=== PATIENT | female | born 1990 | race Caucasian/White ===

== ENCOUNTER 2016-12-18 19:23 | Emergency (ER) | payer MEDICARE, MEDICAID ==
--- NOTE | 2016-12-18 20:43 | ER Document Report ---
ED Medical Screen (RME) - General Stated Complaint: POSSIBLE VAGINAL DISCHARGE Time seen by provider: 20:38 Mode of Arrival: Ambulatory Information source: Patient Notes: 26-year-old female presents to ED for vaginal pelvic pain 36 hours. She states she examined herself cervix and there was some bumps on her cervix. She states she does not see anything on the outside. Last menstrual period was November. She states that when she did her exam on herself she felt like something popped in that she had some blood and discharge from her vaginal area. Then any time she has a bowel movement she has a vaginal discharge and with blood.. I have greeted and performed a rapid initial assessment of this patient. A comprehensive ED assessment and evaluation of the patient, analysis of test results and completion of medical decision making process will be conducted by an additional ED providers. TRAVEL OUTSIDE OF THE [place] IN LAST 30 DAYS: No - Related Data Allergies/Adverse Reactions: No Known Allergies Allergy (Verified 10/20/16 09:17) Past Medical History - Past Medical History Cardiac Medical History: Denies: Hx Coronary Artery Disease, Hx Heart Attack, Hx Hypertension Pulmonary Medical History: Denies: Hx Asthma, Hx Bronchitis, Hx COPD, Hx Pneumonia Neurological Medical History: Denies: Hx Cerebrovascular Accident, Hx Seizures GI Medical History: Reports: Hx Ulcerative Colitis - Patient reports pancolitis Musculoskeltal Medical History: Denies Hx Arthritis - Immunizations Hx Diphtheria, Pertussis, Tetanus Vaccination: Yes
[2016-12-18 22:54] LABS: APPEARANCE,URINE SLIGHTLY-CLOUDY; BILIRUBIN,URINE NEGATIVE (NEGATIVE); GLUCOSE, URINE NEGATIVE (NEGATIVE); KETONES,URINE NEGATIVE (NEGATIVE); LEUKOCYTE ESTERASE,URINE NEGATIVE (NEGATIVE); NITRITE,URINE NEGATIVE (NEGATIVE); PROTEIN,URINE NEGATIVE (NEGATIVE); URINE SPECIFIC GRAVITY 1.017; UROBILINOGEN,URINE NEGATIVE mg/dL (<2.0)
[2016-12-18 23:14] LABS: ALANINE AMINOTRANSFERASE 30 U/L (9-52); ALBUMIN 4.9 g/dL (3.5-5.0); ALKALINE PHOSPHATASE 61 U/L (38-126); ANION GAP 16 (5-19); ASPARTATE AMINO TRANSFERASE 24 U/L (14-36); BILIRUBIN,DIRECT 0.1 mg/dL (0.0-0.4); BILIRUBIN,TOTAL 0.6 mg/dL (0.2-1.3); BLOOD UREA NITROGEN 15 mg/dL (7-20); CALCIUM 10.2 mg/dL (8.4-10.2); CARBON DIOXIDE 25 mmol/L (22-30); CHLORIDE 104 mmol/L (98-107); CREATININE RESULT 0.72 mg/dL (0.52-1.25); GLUCOSE 84 mg/dL (75-110); POTASSIUM 4.3 mmol/L (3.6-5.0); TOTAL PROTEIN 8.4 g/dL (6.3-8.2)
[2016-12-19 00:21] LABS: CHLAM PCR DETECTED (NOT DETECT)
== END 2016-12-19 00:26 | disposition left against medical advice (07) ==
LOC: ER 19:23
DX: Z53.9 Procedure and treatment not carried out, unspecified reason (principal); R10.2 Pelvic and perineal pain
CPT/HCPCS: 36415; 80053; 81001; 84703; 87491; 87591; 99281

== ENCOUNTER 2017-03-23 14:06 | Emergency (ER) | payer MEDICARE, MEDICAID ==
--- NOTE | 2017-03-23 15:07 | ER Document Report ---
ED Medical Screen (RME) - General TRAVEL OUTSIDE OF THE [place] IN LAST 30 DAYS: No - General Chief Complaint: Abdominal Pain Stated Complaint: ABDOMINAL PAIN Time Seen by Provider: 03/23/17 15:03 Notes: Patient is a 26 year old female presenting to the ED for increased abdominal pain and rectal pain. Patient has a history of ulcerative colitis and Crohn's disease. Patient states she is over due for her Remicade infusion. Patient was out of town recently. Patient sees Dr. Contreras GI at [facility] who orders her infusions. Patient denies any nausea/vomiting. (CHRISTOPHER ARCHULETA) - Related Data Allergies/Adverse Reactions: No Known Allergies Allergy (Verified 03/23/17 14:12) Past Medical History - Past Medical History Cardiac Medical History: Denies: Hx Coronary Artery Disease, Hx Heart Attack, Hx Hypertension Pulmonary Medical History: Denies: Hx Asthma, Hx Bronchitis, Hx COPD, Hx Pneumonia Neurological Medical History: Denies: Hx Cerebrovascular Accident, Hx Seizures Renal/ Medical History: Denies: Hx Peritoneal Dialysis GI Medical History: Reports: Hx Ulcerative Colitis - Patient reports pancolitis Musculoskeltal Medical History: Denies Hx Arthritis - Immunizations Hx Diphtheria, Pertussis, Tetanus Vaccination: Yes Physical Exam - Vital signs Vitals: Temp Pulse Resp BP Pulse Ox 98.0 F 96 16 124/85 99 03/23/17 14:13 03/23/17 14:13 03/23/17 14:13 03/23/17 14:13 03/23/17 14:13 - Notes Notes: GENERAL: appears uncomfortable, alert. LUNGS: clear to auscultation bilaterally, no resp. distress. HEART: regular rate and rhythm (CHRISTOPHER ARCHULETA) Course - Re-evaluation Re-evalutation: 03/23/17 15:12 Presents emergency department with history of ulcerative colitis stating she is having a flare. She is having abdominal pain 10+ bowel movements a day which are bloody. She has a history of ulcerative colitis and is on Remicade infusions but went on to state for 5 weeks for a wedding and missed her dosages. She was supposed to go have that done today and her car battery went start she presents to the emergency department. She sees a local GI specialist. She says she feels like she may need some steroids at this point. Nausea but no vomiting bloody diarrhea no lightheadedness dizziness or chest pain vital signs are stable mild tenderness left lower quadrant without guarding rebound rigidity and do a laboratory evaluation and send her to the back for evaluation and disposition per attending ED physician 03/23/17 15:13 I personally performed the services described in the documentation reviewed the documentation recorded by my scribe in my presence and it accurately and completely records my words and actions (MICHAEL MURRELL) - Vital Signs Vital signs: Temp Pulse Resp BP Pulse Ox 98.0 F 96 16 124/85 99 03/23/17 14:13 03/23/17 14:13 03/23/17 14:13 03/23/17 14:13 03/23/17 14:13 Scribe Documentation - Scribe Written by Scribe:: Yan Wilson 03/23/17 15:18 acting as scribe for :: NYASIA
[2017-03-23] MEDS ORDERED: RINGERS SOLUTION,LACTATED 1,000 ML IV PRN (15:12)
[2017-03-23 15:43] LABS: ABSOLUTE BASOPHILS # (AUTO) 0.1 10^3/uL (0.0-0.2); ABSOLUTE EOSINOPHILS # (AUTO) 0.4 10^3/uL (0.0-0.6); ABSOLUTE LYMPHOCYTES (AUTO) 2.4 10^3/uL (0.5-4.7); ABSOLUTE MONOCYTES (AUTO) 0.5 10^3/uL (0.1-1.4); ABSOLUTE NEUT (AUTO) 3.1 10^3/uL (1.7-8.2); BASOPHILS % (AUTO) 1.4 % (0-2); EOSINOPHILS % (AUTO) 5.9 % (0-6); HEMATOCRIT 44.1 % (36.0-47.0); HEMOGLOBIN 14.6 g/dL (12.0-15.5); HGB HCT DIFFERENCE -0.3; LYMPHOCYTES % (AUTO) 36.7 % (13-45); MEAN CORPUSCULAR HEMOGLOBIN 31.8 pg (27.0-33.4); MEAN CORPUSCULAR HGB CONC 33.2 g/dL (32.0-36.0); MEAN CORPUSCULAR VOLUME 96 fl (80-97); MONOCYTES % (AUTO) 7.5 % (3-13); RED BLOOD COUNT 4.61 10^6/uL (3.72-5.28); RED CELL DISTRIBUTION WIDTH 13.2 % (11.5-14.0); SEGMENTED NEUTROPHILS % (AUTO) 48.5 % (42-78); WHITE BLOOD COUNT 6.4 10^3/uL (4.0-10.5)
[2017-03-23 15:55] LABS: ALANINE AMINOTRANSFERASE 53 U/L (9-52); ALBUMIN 4.4 g/dL (3.5-5.0); ALKALINE PHOSPHATASE 57 U/L (38-126); ANION GAP 14 (5-19); ASPARTATE AMINO TRANSFERASE 43 U/L (14-36); BILIRUBIN,DIRECT 0.2 mg/dL (0.0-0.4); BILIRUBIN,TOTAL 0.7 mg/dL (0.2-1.3); BLOOD UREA NITROGEN 8 mg/dL (7-20); CALCIUM 9.5 mg/dL (8.4-10.2); CARBON DIOXIDE 25 mmol/L (22-30); CHLORIDE 103 mmol/L (98-107); CREATININE RESULT 0.75 mg/dL (0.52-1.25); GLUCOSE 82 mg/dL (75-110); POTASSIUM 4.2 mmol/L (3.6-5.0); SODIUM 141.8 mmol/L (137-145)
[2017-03-23] MEDS ORDERED: HYDROMORPHONE HCL INJ/PF 2 MG/ML AMPULE IM ONE (16:19)
--- NOTE | 2017-03-23 17:03 | ER Document Report ---
ED GI/ - General Mode of Arrival: Ambulatory Information source: Patient TRAVEL OUTSIDE OF THE [place] IN LAST 30 DAYS: No - HPI Patient complains to provider of: Abdominal pain, Other - rectal bleeding Onset: Other - few days ago Context: Other - see notes above Associated symptoms: Other - see notes above <MIKY CHAWLA - Last Filed: 03/23/17 18:42> <PREETI ALLEN - Last Filed: 03/23/17 19:15> - General Chief Complaint: Abdominal Pain Stated Complaint: ABDOMINAL PAIN Time Seen by Provider: 03/23/17 15:03 Notes: 26 year old female with history of ulcerative colitis presents to the ED complaining of abdominal distention and worsening bright red rectal bleeding that started 8 days ago. Patient reports that she receives Remicade shots and has been overdue for a shot for 5 weeks since she has been out of town for a friend's wedding. Patient was last scheduled to receive the shot between 2016 and 03/02/2017. Patient explains that yesterday she almost had an accident while out in public. Patient is also complaining of diffuse abdominal pain and describes it as a 'burning' sensation, severe pressure to the rectal area to the point that she feels like she needs to have a bowel movement, and nausea. Patient denies fever, chest pain, or shortness of breath. (MIKY CHAWLA) Patient states this is consistent with her usual flares. (PREETI ALLEN) - Related Data Allergies/Adverse Reactions: No Known Allergies Allergy (Verified 03/23/17 14:12) Past Medical History - General Information source: Patient - Social History Smoking Status: Never Smoker Chew tobacco use (# tins/day): No Frequency of alcohol use: None Drug Abuse: None Family History: Reviewed & Not Pertinent Patient has suicidal ideation: No Patient has homicidal ideation: No Renal/ Medical History: Denies: Hx Peritoneal Dialysis GI Medical History: Reports: Hx Ulcerative Colitis - Patient reports pancolitis Musculoskeltal Medical History: Denies Hx Arthritis - Immunizations Hx Diphtheria, Pertussis, Tetanus Vaccination: Yes <MIKY CHAWLA - Last Filed: 03/23/17 18:42> Review of Systems - Review of Systems Constitutional: No symptoms reported. denies: Fever EENT: No symptoms reported Cardiovascular: No symptoms reported. denies: Chest pain Respiratory: No symptoms reported. denies: Short of breath Gastrointestinal: See HPI, Abdomen distended, Abdominal pain - 'burning', Nausea , Rectal bleeding - and pressure Genitourinary: No symptoms reported Female Genitourinary: No symptoms reported Musculoskeletal: No symptoms reported Skin: No symptoms reported Hematologic/Lymphatic: No symptoms reported Neurological/Psychological: No symptoms reported -: Yes All other systems reviewed and negative <MIKY CHAWLA - Last Filed: 03/23/17 18:42> Physical Exam <MIKY CHAWLA - Last Filed: 03/23/17 18:42> <PREETI ALLEN - Last Filed: 03/23/17 19:15> - Vital signs Vitals: Temp Pulse Resp BP Pulse Ox 98.0 F 96 16 124/85 99 03/23/17 14:13 03/23/17 14:13 03/23/17 14:13 03/23/17 14:13 03/23/17 14:13 - Notes Notes: GENERAL: Alert, interacts well. No acute distress. HEAD: Normocephalic, atraumatic. EYES: Pupils equal, round, and reactive to light. Extraocular movements intact. ENT: Oral mucosa moist, tongue midline. NECK: Full range of motion. Supple. Trachea midline. LUNGS: Clear to auscultation bilaterally, no wheezes, rales, or rhonchi. No respiratory distress. HEART: Regular rate and rhythm. No murmurs, gallops, or rubs. ABDOMEN: Soft. Non-distended. Bowel sounds present in all 4 quadrants. Mild lower abdomen tenderness to palpation. RECTAL: No stool, but two specs of blood was visualized. Patient is tender to the exam. EXTREMITIES: Moves all 4 extremities spontaneously. No edema, radial and dorsalis pedis pulses 2/4 bilaterally. No cyanosis. NEUROLOGICAL: Alert and oriented x3. Normal speech. PSYCH: Normal affect, normal mood. SKIN: Warm, dry, normal turgor. No rashes or lesions noted. (MIKY CHAWLA) Course - Laboratory Result Diagrams: 03/23/17 15:30 03/23/17 15:30 - Consults Dr. Contreras Time consulted: 18:14 <MIKY CHAWLA - Last Filed: 03/23/17 18:42> - Laboratory Result Diagrams: 03/23/17 15:30 03/23/17 15:30 <PREETI ALLEN - Last Filed: 03/23/17 19:15> - Re-evaluation Re-evalutation: 03/23/17 18:34 CBC unremarkable, ESR normal, CMP unremarkable, CRP normal, Hemoccult negative. Discussed patient with Dr. Contreras who states that this does appear consistent with her usual flares, agrees with starting steroids, recommends 40 mg per day for a week then 20 mg per day for a week, show up for her Remicade infusion on Sunday and follow-up with him before the steroids run out. Patient is agreeable to this plan. (PREETI ALLEN) - Vital Signs Vital signs: Temp Pulse Resp BP Pulse Ox 98.1 F 89 18 120/80 100 03/23/17 18:49 03/23/17 18:49 03/23/17 18:49 03/23/17 18:49 03/23/17 18:49 - Laboratory Laboratory results interpreted by me: 03/23/17 15:30 AST 43 H ALT 53 H - Consults Dr. Contreras Reason for consultation: 03/23/17 18:14 Patient was discussed with Dr. Contreras and says to start the patient on 40 mg steroids for 1st week and 20 mg steroids the following week and to continue until symptoms resolve. (MIKY CHAWLA) Discharge <MIKY CHAWLA - Last Filed: 03/23/17 18:42> <PREETI ALLEN - Last Filed: 03/23/17 19:15> - Discharge Clinical Impression: Ulcerative colitis with rectal bleeding Qualifiers: Ulcerative colitis location: unspecified ulcerative colitis location Qualified Code(s): K51.911 - Ulcerative colitis, unspecified with rectal bleeding Condition: Stable Disposition: HOME, SELF-CARE Additional Instructions: Take your steroids 2 tablets a day every day for the first week then decrease to 1 tablet a day every day for the next week, follow up with Dr. Contreras prior to the steroids running out. Do not skip your Remicade infusion on Sunday. Prescriptions: Oxycodone HCl/Acetaminophen [Percocet 5-325 mg Tablet] 1 - 2 tab PO Q4H PRN #15 tablet PRN Reason: Prednisone 20 mg PO ASDIR PRN #21 tablet PRN Reason: Referrals: TOMMY CONTRERAS MD [ACTIVE STAFF] - Follow up in 1 week Scribe Attestation: 03/23/17 19:15 I personally performed the services described in the documentation, reviewed and edited the documentation which was dictated to the scribe in my presence, and it accurately records my words and actions. (PREETI ALLEN) Scribe Documentation - Scribe Written by Radhikaibe:: Yan Lloyd, 03/23/2017 1913 acting as scribe for :: Abelardo <MIKY CHAWLA - Last Filed: 03/23/17 18:42>
[2017-03-23 18:50] VITALS: BP 120/80
== END 2017-03-23 18:50 | disposition home or self-care (01) ==
LOC: ER 14:06
DX: K51.911 Ulcerative colitis, unspecified with rectal bleeding (principal); R10.9 Unspecified abdominal pain
CPT/HCPCS: 99284; 96372; 36415; 85025; 85652; 82272; 86140; 80053; J1170

== ENCOUNTER 2017-05-23 20:20 | Emergency (ER) | payer MEDICARE, MEDICAID ==
[2017-05-23 23:36] LABS: ABSOLUTE LYMPHOCYTES (AUTO) 0.8 10^3/uL (0.5-4.7); ABSOLUTE MONOCYTES (AUTO) 0.3 10^3/uL (0.1-1.4); ABSOLUTE NEUT (AUTO) 9.3 10^3/uL (1.7-8.2); BASOPHILS % (AUTO) 0.2 % (0-2); HEMATOCRIT 42.2 % (36.0-47.0); HEMOGLOBIN 14.1 g/dL (12.0-15.5); HGB HCT DIFFERENCE 0.1; LYMPHOCYTES % (AUTO) 7.7 % (13-45); MEAN CORPUSCULAR HEMOGLOBIN 32.1 pg (27.0-33.4); MEAN CORPUSCULAR HGB CONC 33.4 g/dL (32.0-36.0); MEAN CORPUSCULAR VOLUME 96 fl (80-97); MONOCYTES % (AUTO) 2.5 % (3-13); RED CELL DISTRIBUTION WIDTH 13.3 % (11.5-14.0); SEGMENTED NEUTROPHILS % (AUTO) 89.6 % (42-78); WHITE BLOOD COUNT 10.4 10^3/uL (4.0-10.5)
[2017-05-23 23:56] LABS: AMORPHOUS SEDIMENT,URINE TRACE /HPF; APPEARANCE,URINE TURBID; BILIRUBIN,URINE NEGATIVE (NEGATIVE); GLUCOSE, URINE NEGATIVE (NEGATIVE); KETONES,URINE TRACE mg/dL (NEGATIVE); LEUKOCYTE ESTERASE,URINE NEGATIVE (NEGATIVE); NITRITE,URINE NEGATIVE (NEGATIVE); PROTEIN,URINE 30 mg/dL (NEGATIVE); URINE SPECIFIC GRAVITY 1.021; UROBILINOGEN,URINE NEGATIVE mg/dL (<2.0)
[2017-05-24 00:03] LABS: ALANINE AMINOTRANSFERASE 29 U/L (9-52); ALBUMIN 4.6 g/dL (3.5-5.0); ALKALINE PHOSPHATASE 65 U/L (38-126); ANION GAP 13 (5-19); ASPARTATE AMINO TRANSFERASE 17 U/L (14-36); BILIRUBIN,DIRECT 0.3 mg/dL (0.0-0.4); BILIRUBIN,TOTAL 0.5 mg/dL (0.2-1.3); BLOOD UREA NITROGEN 13 mg/dL (7-20); CARBON DIOXIDE 28 mmol/L (22-30); CHLORIDE 100 mmol/L (98-107); CREATININE RESULT 0.62 mg/dL (0.52-1.25); GLUCOSE 110 mg/dL (75-110); LIPASE 85.8 U/L (23-300); POTASSIUM 4.4 mmol/L (3.6-5.0); SODIUM 140.8 mmol/L (137-145); TOTAL PROTEIN 8.1 g/dL (6.3-8.2)
[2017-05-24] MEDS ORDERED: HYDROCODONE/ACETAMINOPHEN 5-325 MG 6 TAB/DSPK PO PRN (01:15)
--- NOTE | 2017-05-24 01:17 | ER Document Report ---
ED GI/ - General Chief Complaint: Abdominal Injury Stated Complaint: VAGINAL BLEEDING/DIFFICULTY BREATHING Time Seen by Provider: 05/23/17 23:26 Mode of Arrival: Ambulatory Information source: Patient TRAVEL OUTSIDE OF THE [place] IN LAST 30 DAYS: No - HPI Patient complains to provider of: Abdominal pain, Diarrhea Quality of pain: Achy, Burning, Cramping Location: Other - Generalized Associated symptoms: Diarrhea, Nausea, Vomiting Exacerbated by: Denies Relieved by: Denies Similar symptoms previously: Yes Recently seen / treated by doctor: Yes Notes: 05/24/17 01:39 Patient is a 26-year-old female with a history of ulcerative colitis who has been dealing with flareup since January of this year due to multiple stressors including recent move, she reports 20+ bowel movements on a daily basis, with a small amount of blood, she was recently seen by her installation service representative and placed on a prednisone taper as well as dicyclomine, over the past 3-4 days she has been having symptoms such as facial numbness with burning sensation in her upper chest/esophagus and lungs, so she stopped taking the dicyclomine 24 hours ago, symptoms have seemed to improve but she reports an impending sense of doom today - Related Data Allergies/Adverse Reactions: No Known Allergies Allergy (Verified 05/23/17 21:07) Past Medical History - General Information source: Patient - Social History Smoking Status: Never Smoker Frequency of alcohol use: None Drug Abuse: None Family History: Reviewed & Not Pertinent Patient has suicidal ideation: No Patient has homicidal ideation: No - Past Medical History Cardiac Medical History: Denies: Hx Coronary Artery Disease, Hx Heart Attack, Hx Hypertension Pulmonary Medical History: Denies: Hx Asthma, Hx Bronchitis, Hx COPD, Hx Pneumonia Neurological Medical History: Denies: Hx Cerebrovascular Accident, Hx Seizures Renal/ Medical History: Denies: Hx Peritoneal Dialysis GI Medical History: Reports: Hx Ulcerative Colitis - Patient reports pancolitis Musculoskeltal Medical History: Denies Hx Arthritis - Immunizations Hx Diphtheria, Pertussis, Tetanus Vaccination: Yes Review of Systems - Review of Systems Constitutional: No symptoms reported EENT: No symptoms reported Cardiovascular: No symptoms reported Respiratory: No symptoms reported Gastrointestinal: See HPI Genitourinary: No symptoms reported Female Genitourinary: No symptoms reported Musculoskeletal: No symptoms reported Skin: No symptoms reported Hematologic/Lymphatic: No symptoms reported Neurological/Psychological: See HPI -: Yes All other systems reviewed and negative Physical Exam - Vital signs Vitals: Temp Pulse Resp BP Pulse Ox 98.4 F 102 H 18 102/67 98 05/23/17 21:04 05/23/17 21:04 05/23/17 21:04 05/23/17 21:04 05/23/17 21:04 Interpretation: Normal - General General appearance: Appears well, Alert - HEENT Head: Normocephalic, Atraumatic Eyes: Normal Pupils: PERRL Pharynx: Other - Whitish film on the left exterior pharynx - Respiratory Respiratory status: No respiratory distress Chest status: Nontender Breath sounds: Normal Chest palpation: Normal - Cardiovascular Rhythm: Regular Heart sounds: Normal auscultation Murmur: No - Abdominal Inspection: Normal Distension: No distension Bowel sounds: Normal Tenderness: Tender - Mild diffuse Organomegaly: No organomegaly - Back Back: Normal, Nontender - Extremities General upper extremity: Normal inspection, Nontender, Normal color, Normal ROM , Normal temperature General lower extremity: Normal inspection, Nontender, Normal color, Normal ROM , Normal temperature, Normal weight bearing. No: Tami's sign - Neurological Neuro grossly intact: Yes Cognition: Normal Orientation: AAOx4 [place] Coma Scale Eye Opening: Spontaneous Nicole Coma Scale Verbal: Oriented [place] Coma Scale Motor: Obeys Commands Nicole Coma Scale Total: 15 Speech: Normal Motor strength normal: LUE, RUE, LLE, RLE Sensory: Normal - Psychological Associated symptoms: Normal affect, Normal mood - Skin Skin Temperature: Warm Skin Moisture: Dry Skin Color: Normal Course - Re-evaluation Re-evalutation: 05/24/17 01:40 Lab findings were discussed with patient at bedside which are unremarkable, physical exam findings are unremarkable as well except for mild diffuse abdominal tenderness and slight abdominal distention, symptoms are consistent with ulcerative colitis, she is being followed by a installation service representative for this , she feels as though her current worsening of symptoms is likely related to addition of dicyclomine, on physical exam she does have a small area of whitish colored film in her posterior pharynx consistent with possible early thrush, she was started on Magic mouthwash for this and provided with a hydrocodone dose pack for pain relief until she is able to follow-up with her installation service representative once again, she was advised to return if any worsening of symptoms or additional concerns, patient acknowledges understanding and agreement with this plan - Vital Signs Vital signs: Temp Pulse Resp BP Pulse Ox 97.9 F 89 18 111/78 99 05/24/17 01:26 05/24/17 01:26 05/24/17 01:26 05/24/17 01:26 05/24/17 01:26 - Laboratory Result Diagrams: 05/23/17 23:13 05/23/17 23:13 Laboratory results interpreted by me: 05/23/17 05/23/17 23:13 23:13 Seg Neutrophils % 89.6 H Lymphocytes % 7.7 L Monocytes % 2.5 L Absolute Neutrophils 9.3 H Urine Protein 30 H Urine Ketones TRACE H Discharge - Discharge Clinical Impression: Thrush, oral Abdominal pain Qualifiers: Abdominal location: generalized Qualified Code(s): R10.84 - Generalized abdominal pain Condition: Stable Disposition: HOME, SELF-CARE Instructions: Abdominal Pain ([facility]), Oral Thrush ([facility]) Additional Instructions: Follow up with your primary care provider and installation service representative in one to 2 days. Return to the emergency room immediately if symptoms worsen or any additional concerns. Prescriptions: Nystatin/Dexameth/Diphen [Magic Mouthwash ([facility] Formula) Susp] 5 ml PO QID #120 ml
[2017-05-24 01:27] VITALS: BP 111/78
== END 2017-05-24 01:26 | disposition home or self-care (01) ==
LOC: ER 20:20
DX: B37.0 Candidal stomatitis (principal); K51.90 Ulcerative colitis, unspecified, without complications; R10.84 Generalized abdominal pain; R20.0 Anesthesia of skin; R09.89 Other specified symptoms and signs involving the circulatory and respiratory systems; R19.7 Diarrhea, unspecified; R11.2 Nausea with vomiting, unspecified
CPT/HCPCS: 99284; 86900; 86901; 36415; 86850; 83690; 85025; 81025; 80053; 81001; A9270

== ENCOUNTER → 2017-09-14 | Outpatient (CLI) | payer MEDICARE, MEDICAID ==
[2017-09-14 15:30] LABS: ABSOLUTE BASOPHILS # (AUTO) 0.1 10^3/uL (0.0-0.2); ABSOLUTE EOSINOPHILS # (AUTO) 0.4 10^3/uL (0.0-0.6); ABSOLUTE LYMPHOCYTES (AUTO) 2.2 10^3/uL (0.5-4.7); ABSOLUTE MONOCYTES (AUTO) 0.6 10^3/uL (0.1-1.4); ABSOLUTE NEUT (AUTO) 4.5 10^3/uL (1.7-8.2); BASOPHILS % (AUTO) 0.7 % (0-2); EOSINOPHILS % (AUTO) 4.7 % (0-6); HEMATOCRIT 40.4 % (36.0-47.0); HEMOGLOBIN 14.2 g/dL (12.0-15.5); HGB HCT DIFFERENCE 2.2; LYMPHOCYTES % (AUTO) 28.7 % (13-45); MEAN CORPUSCULAR HEMOGLOBIN 31.3 pg (27.0-33.4); MEAN CORPUSCULAR HGB CONC 35.1 g/dL (32.0-36.0); MEAN CORPUSCULAR VOLUME 89 fl (80-97); MONOCYTES % (AUTO) 7.2 % (3-13); RED BLOOD COUNT 4.54 10^6/uL (3.72-5.28); RED CELL DISTRIBUTION WIDTH 15.2 % (11.5-14.0); SEGMENTED NEUTROPHILS % (AUTO) 58.7 % (42-78); WHITE BLOOD COUNT 7.6 10^3/uL (4.0-10.5)
[2017-09-14 15:48] LABS: ALANINE AMINOTRANSFERASE 39 U/L (9-52); ALBUMIN 4.3 g/dL (3.5-5.0); ALKALINE PHOSPHATASE 41 U/L (38-126); ANION GAP 11 (5-19); ASPARTATE AMINO TRANSFERASE 21 U/L (14-36); BILIRUBIN,DIRECT 0.2 mg/dL (0.0-0.4); BILIRUBIN,TOTAL 0.3 mg/dL (0.2-1.3); BLOOD UREA NITROGEN 9 mg/dL (7-20); CALCIUM 9.4 mg/dL (8.4-10.2); CARBON DIOXIDE 26 mmol/L (22-30); CHLORIDE 102 mmol/L (98-107); CREATININE RESULT 0.61 mg/dL (0.52-1.25); GLUCOSE 97 mg/dL (75-110); POTASSIUM 4.5 mmol/L (3.6-5.0); TOTAL PROTEIN 7.4 g/dL (6.3-8.2)
== END ==
LOC: LAB 15:09
PROVIDERS: ATTEND Student in an Organized Health Care Education/Training Program
DX: O00.80 Other ectopic pregnancy without intrauterine pregnancy (principal)
CPT/HCPCS: 36415; 80053; 84702; 85025; 86850; 86900; 86901

== ENCOUNTER → 2017-09-18 | Outpatient (CLI) | payer MEDICARE, MEDICAID ==
[2017-09-18 13:26] LABS: ABSOLUTE BASOPHILS # (AUTO) 0.1 10^3/uL (0.0-0.2); ABSOLUTE EOSINOPHILS # (AUTO) 0.3 10^3/uL (0.0-0.6); ABSOLUTE LYMPHOCYTES (AUTO) 1.8 10^3/uL (0.5-4.7); ABSOLUTE MONOCYTES (AUTO) 0.5 10^3/uL (0.1-1.4); ABSOLUTE NEUT (AUTO) 2.5 10^3/uL (1.7-8.2); BASOPHILS % (AUTO) 1.3 % (0-2); EOSINOPHILS % (AUTO) 5.4 % (0-6); HEMATOCRIT 39.6 % (36.0-47.0); HEMOGLOBIN 13.4 g/dL (12.0-15.5); HGB HCT DIFFERENCE 0.6; LYMPHOCYTES % (AUTO) 35.5 % (13-45); MEAN CORPUSCULAR HEMOGLOBIN 30.5 pg (27.0-33.4); MEAN CORPUSCULAR HGB CONC 33.9 g/dL (32.0-36.0); MEAN CORPUSCULAR VOLUME 90 fl (80-97); RED CELL DISTRIBUTION WIDTH 15.5 % (11.5-14.0); SEGMENTED NEUTROPHILS % (AUTO) 48.8 % (42-78); WHITE BLOOD COUNT 5.1 10^3/uL (4.0-10.5)
[2017-09-18 13:44] LABS: ALANINE AMINOTRANSFERASE 62 U/L (9-52); ALBUMIN 4.2 g/dL (3.5-5.0); ALKALINE PHOSPHATASE 40 U/L (38-126); ANION GAP 10 (5-19); ASPARTATE AMINO TRANSFERASE 32 U/L (14-36); BILIRUBIN,DIRECT 0.1 mg/dL (0.0-0.4); BILIRUBIN,TOTAL 0.5 mg/dL (0.2-1.3); BLOOD UREA NITROGEN 8 mg/dL (7-20); CALCIUM 9.2 mg/dL (8.4-10.2); CARBON DIOXIDE 23 mmol/L (22-30); CHLORIDE 106 mmol/L (98-107); CREATININE RESULT 0.55 mg/dL (0.52-1.25); GLUCOSE 77 mg/dL (75-110); POTASSIUM 4.6 mmol/L (3.6-5.0); SODIUM 139.2 mmol/L (137-145)
== END ==
LOC: LAB 13:12
PROVIDERS: ATTEND Student in an Organized Health Care Education/Training Program
DX: O00.80 Other ectopic pregnancy without intrauterine pregnancy (principal)
CPT/HCPCS: 36415; 80053; 84702; 85025

== ENCOUNTER 2017-09-19 09:08 | Day surgery (SDC) | payer MEDICARE, MEDICAID ==
[2017-09-19] MEDS ORDERED: KETAMINE HCL INJ 500 MG/10 ML VIAL ONE (09:39)
[2017-09-19] MEDS ORDERED: FENTANYL CITRATE INJ/PF 100 MCG/2 ML AMPUL ONE ×2 (09:39→10:44)
[2017-09-19] MEDS ORDERED: ACETAMINOPHEN 100 ML IV ONE (09:40)
[2017-09-19] MEDS ORDERED: PROPOFOL INJ 200 MG/20 ML VIAL IV ONE ×2 (09:40→09:44)
[2017-09-19] MEDS ORDERED: MIDAZOLAM 2 MG/2 ML INJ ONE (09:40)
[2017-09-19] MEDS ORDERED: DOXYCYCLINE HYCLATE 100 MG in DEXTROSE 5%-WATER 250 ML IV PRN (09:42)
[2017-09-19] MEDS ORDERED: LIDOCAINE 2% INJ-PF (20 MG/ML) 10 ML AMPUL ONE (09:44)
[2017-09-19 10:03] LABS: APPEARANCE,URINE SLIGHTLY-CLOUDY; BILIRUBIN,URINE NEGATIVE (NEGATIVE); GLUCOSE, URINE NEGATIVE (NEGATIVE); KETONES,URINE NEGATIVE (NEGATIVE); LEUKOCYTE ESTERASE,URINE NEGATIVE (NEGATIVE); NITRITE,URINE NEGATIVE (NEGATIVE); PROTEIN,URINE NEGATIVE (NEGATIVE); URINE SPECIFIC GRAVITY 1.025; UROBILINOGEN,URINE NEGATIVE mg/dL (<2.0)
[2017-09-19] MEDS ORDERED: RINGERS SOLUTION,LACTATED 1,000 ML IV PRN (10:36)
[2017-09-19] MEDS ORDERED: OXYCODONE-ACETAMINOPHEN 5-325 MG TABLET PO PRN (10:36)
[2017-09-19] MEDS ORDERED: ACETAMINOPHEN WITH CODEINE #3 TABLET PO PRN (10:36)
--- NOTE | 2017-09-19 10:57 | OPERATIVE REPORT E ---
Operative Report NAME: MEG EDMONDSON : 1990 AGE: 27Y DATE OF SURGERY: 09/19/2017 ROOM: PREOPERATIVE DIAGNOSIS: Incomplete AB. POSTOPERATIVE DIAGNOSIS: Incomplete AB. OPERATION: Suction D and C. SURGEON: Santa PIÑA M.D. ESTIMATED BLOOD LOSS: Less than 50 mL. TISSUE REMOVED OR ALTERED: Products of conception. ANESTHESIA: Sedation. PROCEDURE: The patient was placed in the dorsal lithotomy position, prepped and draped in the sterile fashion. A speculum was placed, cervix visualized and grasped with a single tooth tenaculum. Uterus sounded to a depth of 10 cm. The cervix was sufficiently opened to accept a #8 *------* catheter. Suction and curettage was performed followed by sharp curettage and repeat suction. The single tooth tenaculum was removed and hemostasis was noted. The speculum was removed and the procedure terminated. She tolerated it well and was taken to recovery in good condition. DICTATING PHYSICIAN: Santa PIÑA M.D. [id number] PHY#: [id number] ID: [id number] JOB#: [id number] ACCT: [id number] cc:Santa PIÑA M.D. >
[2017-09-19 12:21] VITALS: BP 102/67
[2017-09-19] MEDS ORDERED: ACETAMINOPHEN 325 MG TABLET PO SCH (14:00)
[2017-09-19] MEDS ORDERED: DEXAMETHASONE SOD PHOSPHATE INJ 4 MG/1 ML VIAL ONE (14:27)
[2017-09-19] MEDS ORDERED: ONDANSETRON HCL INJ/PF 4 MG/2 ML SDV ONE (14:27)
[2017-09-19] MEDS ORDERED: METOCLOPRAMIDE HCL INJ/PF 10 MG/2 ML SDV ONE (14:27)
[2017-09-19] MEDS ORDERED: KETOROLAC TROMETHAMINE 60 MG/2 ML SDV ONE (14:27)
== END 2017-09-19 12:10 | disposition home or self-care (01) ==
LOC: OROUT 09:08
PROVIDERS: ATTEND Obstetrics & Gynecology Gynecology
PROC: 10D17ZZ Extraction of Products of Conception, Retained, Via Natural or Artificial Opening (ICD-10-PCS; principal; 2017-09-19 11:00)
DX: O02.1 Missed abortion (principal); K51.90 Ulcerative colitis, unspecified, without complications; Z79.899 Other long term (current) drug therapy
CPT/HCPCS: 81001; 88305 ×2; 59820; J2250; J1100; J1885; J3010; J3490 ×2; J2765; A9270; J2405; J2704; J0131; 1965